=== PATIENT | male | born 1955 | race Caucasian/White ===

== ENCOUNTER 2018-03-27 08:26 | Outpatient (REF) | payer MEDICAID, SELFPAY ==
[2018-03-27 13:36] LABS: Hemoglobin A1C 5.7 % (4.5-6.2)
[2018-03-27 13:57] LABS: Cholesterol 173 mg/dL (50-200); Glucose 100 mg/dL (70-100); HDL Cholesterol 42 mg/dL (40-60); LDL CHOLESTEROL 102 mg/dL (<100); Triglyceride 146 mg/dL (30-150)
[2018-03-28 10:19] LABS: Hepatitis C Ab w Rflx HCV PCR Negative (NEGAT)
== END 2018-03-27 08:27 ==
LOC: NCHCN 08:26
PROVIDERS: PCP Internal Medicine; Visit Provider Internal Medicine
DX: E78.5 Hyperlipidemia, unspecified (principal); Z11.59 Encounter for screening for other viral diseases; E66.9 Obesity, unspecified; Z13.1 Encounter for screening for diabetes mellitus; Z00.00 Encounter for general adult medical examination without abnormal findings
CPT/HCPCS: 80061; 82947; 83721; 86803; 83036

== ENCOUNTER 2018-06-07 14:02 | Emergency (ER) | payer MEDICAID, SELFPAY ==
[2018-06-07 14:06] VITALS: BP 132/83; PULSE 72; RESP 18; TEMP 36.3; O2SAT 95
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
[2018-06-07] MEDS: Erythromycin Ophth Oint 3.5 GM TUBE (14:34)
== END 2018-06-07 14:45 | disposition home or self-care (01) ==
PROVIDERS: Emergency Provider Student in an Organized Health Care Education/Training Program; PCP Internal Medicine
DX: T54.2X1A Toxic effect of corrosive acids and acid-like substances, accidental (unintentional), initial encounter (principal); T26.91XA Corrosion of right eye and adnexa, part unspecified, initial encounter
CPT/HCPCS: 99283

== ENCOUNTER 2019-01-18 01:23 | Outpatient (CLI) | payer MEDICAID, SELFPAY ==
[2019-01-18 10:15] LABS: ALT 43 U/L (12-78); AST 32 U/L (15-37); Albumin 4.1 g/dL (3.4-5.0); Alkaline Phosphatase 44 U/L (46-116); Anion Gap 11.5 mmol/L (3-11); BUN 14 mg/dL (7-18); Bilirubin, Total 0.5 mg/dL (0.2-1.0); CO2 26.5 mmol/L (21.0-32.0); CREATININE 0.98 mg/dL (0.70-1.30); Calcium 9.4 mg/dL (8.5-10.1); Chloride 103 mmol/L (98-107); Glucose 94 mg/dL (70-100); Potassium 4.4 mmol/L (3.5-5.1); Sodium 141 mmol/L (136-145); Total Protein 6.8 g/dL (6.4-8.2)
[2019-01-19 09:24] LABS: AFP Tumor Marker 3.6 ng/mL (<8.1)
[2019-01-19 10:40] LABS: PSA, Screening 3.5 ng/ml (0-4.5)
[2019-01-19 12:35] LABS: Beta-HCG, Quant, Tumor Marker <0.6 IU/L (<1.4)
== END 2019-01-18 01:43 ==
PROVIDERS: PCP Internal Medicine; Visit Provider Urology
DX: Z12.5 Encounter for screening for malignant neoplasm of prostate (principal); C62.12 Malignant neoplasm of descended left testis
CPT/HCPCS: 36415; 80053; 84153; 82105; 84702

== ENCOUNTER 2019-04-09 06:25 | Emergency (ER) | payer MEDICAID, SELFPAY ==
[2019-04-09 06:29] VITALS: BP 118/75; PULSE 70; RESP 16; TEMP 36.9; O2SAT 98
--- NOTE | 2019-04-09 06:34 | ED.GENADUL_ITS ---
Discharge Plan Disposition Patient Disposition: HOME Condition: Stable Discharge Details Chief Complaint: Nk/Back Pain Clinical Impression: Lumbar strain Primary Care Provider: Emeterio Hopkins ED Provider: Dante Barrios Home Meds and New Rx's Prescriptions: New diazepam [Valium] 5 mg tablet 5 mg PO TID PRN (Reason: muscle spasm) Qty: 20 RF: 0 Continued simvastatin [Zocor] 20 MG tablet 40 mg PO DAILY RF: 0 aspirin [Aspirin Low-Strength] 81 MG tablet,chewable 81 mg PO DAILY RF: 0 tamsulosin 0.4 MG capsule 0.4 mg PO DAILY Qty: 30 RF: 4 multivitamin with minerals [Multiple Vitamin-Minerals] 1 EACH tablet 1 ea PO DAILY RF: 0 Probiotic 1 EACH capsule 1 ea PO BID RF: 0 Discharge Instructions Instructions: Low Back Strain (ED) Additional Instructions: follow up with your primary care provider within 1-2 weeks you can take 1000mg tylenol and 600mg ibuprofen every 6 hours for pain as needed do not drink alcohol or drive if you take the valium if you develop high fevers, worsening pain, weakness, difficulty urinating return to the emergency department Medical Decision Making 63 yo male states that 4 days ago he did a lot of raking and strained his lower back. Denies falls or trauma, no fevers, no ivdu, and denies weaknes or diffcculty urinating. HE localizes the pain across lumbar spine. HAS full rom of the lubmar spine though with pain and has most pain when standing straight. No stepoffs, no saddle anethesia and normal sesaiton and motor and strength in the legs. No findings on exam or history to suggest sea or cauda equina or other spinal cordp athology so do not feel emergent mri indicated. Given no falls or trauma doubt fx/dislocation and do not feel xray or ct indicated. Suspect strain vs muscle spasm. Will try mnuscle relaxers and advised f/u with pcp with return precautions Differential Diagnosis strain, muscle spasm HPI General Mode of arrival: ambulatory . Date/Time Provider Initiated Documentation: 04/09/19 06:29 . Limitations to Documentation: no limitations . Information obtained by: patient . History of Present Illness 63 year old M presents to the emergency department with the chief complaint of low back pain, described as moderate, Quality is described as aching, Patient started experiencing this day(s) (4) and it has been constant. Related Data Home Medications Medication Instructions Recorded Confirmed aspirin [Aspirin Low-Strength] 81 mg PO DAILY tab.chew 01/26/13 06/07/18 simvastatin [Zocor] 40 mg PO DAILY tab-cap 01/26/13 06/07/18 tamsulosin 0.4 mg PO DAILY #30 tab-cap 01/17/14 06/07/18 Lactobacillus acidophilus 1 ea PO BID 07/05/16 07/05/16 [Probiotic] multivitamin with minerals 1 ea PO DAILY 07/05/16 06/07/18 [Multiple Vitamin-Minerals] diazepam [Valium] 5 mg PO TID PRN #20 tab 04/09/19 Previous Rx's Medication Instructions Recorded diazepam [Valium] 5 mg PO TID PRN #20 tab 04/09/19 Allergies Allergy/AdvReac Type Severity Reaction Status Date / Time No Known Allergies Allergy Unverified 04/09/19 06:36 General CLINT: 3 Review of Systems Review of Systems All systems reviewed & are unremarkable except as noted in HPI and below Constitutional Denies chills, Denies fever(s) and Denies weakness Eyes Denies loss of vision ENT Denies change in voice Cardiovascular Denies chest pain and Denies dyspnea Respiratory Denies cough and Denies dyspnea Gastrointestinal Denies abdominal pain, Denies nausea and Denies vomiting Genitourinary Denies dysuria Musculoskeletal Denies joint swelling Integumentary/Breasts Denies rash Neurologic Denies loss of vision and Denies weakness Psychiatric Denies depression Endocrine Denies cold intolerance and Denies heat intolerance PFSH Medical History Adenomatous colon polyp Degenerative joint disease (DJD) of lumbar spine Dyspepsia Hyperlipidemia Seminoma of left testis, stage 1 Surgical History Colonoscopy - IV Sedation Cystoscopy Orchiectomy, Radical right Social History Smoking/Tobacco Use Status: Never Alcohol Intake: never Drug use: Occasionally Substance use type: marijuana Do you feel safe at home: Yes Do you feel safe in your relationship?: Yes Exam Const General: no acute distress Orientation: alert HENMT Head: normal to inspection Ears: external ears normal General nose exam: external nose normal Mouth: moist mucous membranes Eyes General: appearance normal, both eyes and all related structures Neck Neck: normal visual inspection Resp Effort & Inspection: normal respiratory effort and able to speak in complete sentences Cardio Rate: regular rate Back/Spine/Pelvis Back: no CVA tenderness Skin General skin exam: no rashes or lesions noted Neuro General: alert and oriented x3 Extrem General: normal to inspection Psych Mental Status: mental status grossly normal
== END 2019-04-09 06:47 | disposition home or self-care (01) ==
PROVIDERS: Emergency Provider Emergency Medicine; PCP Internal Medicine
DX: S39.012A Strain of muscle, fascia and tendon of lower back, initial encounter (principal); X50.3XXA Overexertion from repetitive movements, initial encounter; Y93.H1 Activity, digging, shoveling and raking
CPT/HCPCS: 99283

== ENCOUNTER 2019-08-13 08:05 | Day surgery (SDC) | payer MEDICAID, SELFPAY ==
--- NOTE | 2019-08-13 06:46 | W.COLOREPORT ---
Date of service: 08/13/19 Time of Service: 09:05 Colonoscopy Report Date of procedure: 08/13/19 Pre-op diagnosis general: Hx of colon polyps Post-op diagnosis procedure note: same (Polyps and diverticulosis) Procedure: Colonoscopy with polypectomy with cold forceps Surgeon: Ruma Bojorquez Anesthesia proc note operative: other (General/ ASA 2/Nicholas Mayo, [employer]) Estimated blood loss (mL): 3 Pathology: other (Transverse polyps, sigmoid polyps x3, and rectal polyp) Complications: None Disposition: same day Indications: 64 y/o male with history of hyperlipidemia presents for colonoscopy screening pre-op. His last screening was in 2014 which was remarkable for tubular adenoma's x 3. He denies a family history of colon cancer. He denies any changes in bowel habits including bloody or black tarry stools, abdominal pain, diarrhea or constipation. Prep: Miralax/Dulcolax Procedure Start Time: 09:05 Procedure End Time: 09:31 Retraction Time: 18 minutes Findings: 5 polyps, all <1 cm in size mild sims-diverticulosis Procedure Description: After informed consent was obtained the patient was taken to the procedure room and placed in a left decubitous position. Monitors were applied and a time out was done. The patients name, date of , procedure, allergies to medications and metal in their body was reviewed. The patient was then sedated. Once sedated and comfortable a rectal exam was done. External exam was normal. Internal exam revealed a normal sphincter tone and no palpable masses. The prostate felt smooth. The scope was then introduced and retro-flexed. Grade 1 internal hemorrhoids were identified. There were no polyps or masses on retro-flexion. The scope was then advanced to the cecum without difficulty. The patient did Fabrice down as I was trying to get to the cecum and the patient was given Robinol by anesthesia. The TI and appendiceal orifice were identified. The prep was adequate. The scope was then slowly retracted over 18 minutes back into the rectum. Polyps were removed with cold forceps in the Transverse colonx1, Sigmoid colon x3 and rectum x1. The scope was removed and the patient was woken up and taken back to Same day surgery in stable condition. The patient tolerated the procedure well and there were no immediate complications. Follow up: The patient should follow up in 3-5 years unless they develop changes in bowel habits or other new gastrointestinal complaints.
--- NOTE | 2019-08-13 06:48 | PDOC.DSDIS_ITS ---
Discharge Plan Disposition Patient Disposition: HOME Condition: Good Discharge Details Reason For Visit: Hx of polyps Attending Provider: Ruma Bojorquez Primary Care Provider: Emeterio Hopkins Home Meds and New Rx's Prescriptions: Continued ascorbic acid (vitamin C) 500 mg tablet 1,000 mg PO DAILY RF: 0 simvastatin [Zocor] 20 MG tablet 40 mg PO DAILY RF: 0 aspirin [Aspirin Low-Strength] 81 MG tablet,chewable 81 mg PO DAILY RF: 0 tamsulosin 0.4 MG capsule 0.4 mg PO DAILY Qty: 30 RF: 4 multivitamin with minerals [Multiple Vitamin-Minerals] 1 EACH tablet 1 ea PO DAILY RF: 0 Probiotic 1 EACH capsule 1 ea PO BID RF: 0 Discontinued bisacodyl [Dulcolax (bisacodyl)] 5 mg tablet,delayed release (DR/EC) 5 mg PO ONCE RF: 0 polyethylene glycol 3350 17 gram/dose powder 238 g PO ONCE Qty: 238 RF: 0 bisacodyl [Dulcolax (bisacodyl)] 5 mg tablet,delayed release (DR/EC) 5 mg PO ONCE Qty: 4 RF: 0 Discharge Instructions Instructions: Diverticulosis (DC), Colorectal Polyps (DC) Additional Instructions: Findings: Mild Diverticulosis 5 polyps Follow up: 3-5 years depending on the pathology report Please call if you develop: fevers >101.5 Nausea or Vomiting Abdominal pain that is not transient DAY SURGERY UNIT POST ENDOSCOPY INSTRUCTIONS 1. Because there will be medication in your system for the next 24 hours, you may feel a little sleepy. Your coordination will be affected. Therefore: a. Do not drive or operate dangerous equipment for 24 hours. b. Do not drink alcohol beverages for 24 hours (not even beer). c. Plan to go home and rest for the day. 2. Generally there are no restrictions on your activity after a day or so has gone by, but you may feel a bit fatigued for a few days. 3 After you arrive home you may have a light meal and return to a normal diet as you can tolerate it without feeling sick to your stomach. 4. After surgery, you may feel pain or discomfort. This should be only transient, but if it persists please contact your doctor. 5. If there are any questions regarding the findings of your procedure, please feel free to contact your doctor. 6. If you are unable to contact your doctor with a problem, contact the [facility] at [phone]. 4. Continue all your regular medications unless directed otherwise. I understand the above instructions and have no questions. Signature of Patient or Responsible Adult Escort Date/Time Name of Responsible Adult Escort Signature of Nurse Date/Time Activity:: Activity as Tolerated Diet:: High Fiber diet Discharge Orders Discharge Orders: Discharge Order (Routine); Ordered 08/13/19 Ordered By: Ruma Bojorquez DS: Diagnosis Discharge Diagnosis (1) Diverticulosis: Status: Acute (2) Colorectal polyps: Status: Acute
[2019-08-13 08:18] VITALS: BP 123/78; PULSE 61; RESP 16; TEMP 36.6; O2SAT 96
[2019-08-13] MEDS: Lactated Ringers 1,000 ML 80 ML IV (08:40)
--- NOTE | 2019-08-13 09:18 | BOWEL_PTH ---
PATIENT: Juan Molina JR LOC: [facility] U#:[id number] AGE/SX: 64/M ROOM: RE08/13/[address]: Ruma Bojorquez MD : [id number] BED: DIS: 08/13/2019 SPEC #: [id number] RECD: 08/13/19 11:11 STATUS: KIRA REQ #: [id number] JOE: 08/13/19 09:[address]: Ruma Bojorquez DEPT: Surgical Specimen RECD BY: Brandy Ma ENTERED: 08/13/19 11:12 SP TYPE: Bowel OTHR DR: Emeterio Hopkins Tissues: 1 - BIOPSY BOWEL 2 - BIOPSY BOWEL 3 - BIOPSY BOWEL Procedures: GROSS AND MICRO LEVEL 4 Comments: [id number]
[2019-08-13 10:28] VITALS: BP 113/75; PULSE 56; RESP 17; TEMP 36.2; O2SAT 97
== END 2019-08-13 10:52 | disposition home or self-care (01) ==
LOC: SUR 08:06
PROVIDERS: PCP Internal Medicine; Visit Provider Surgery
PROC: 0DJD8ZZ Inspection of Lower Intestinal Tract, Via Natural or Artificial Opening Endoscopic (ICD-10-PCS; CPT 45378; principal; 2019-08-13 09:30)
DX: Z12.11 Encounter for screening for malignant neoplasm of colon (principal); D12.3 Benign neoplasm of transverse colon; D12.5 Benign neoplasm of sigmoid colon; K62.1 Rectal polyp; K64.0 First degree hemorrhoids; Z86.010 Personal history of colon polyps; R00.1 Bradycardia, unspecified
CPT/HCPCS: 45380; 88305; J2250; J2704; J3010

== ENCOUNTER 2020-04-17 08:34 | Outpatient (REF) | payer MEDICAID, SELFPAY ==
[2020-04-17 21:33] LABS: Calculated LDL 110 mg/dL (<100); Cholesterol 191 mg/dL (<200); Glucose 91 mg/dL (74-106); HDL Cholesterol 40 mg/dL (40-60); Triglyceride 205 mg/dL (<150)
[2020-04-17 21:35] LABS: Hemoglobin A1C 5.7 % (<5.7)
[2020-04-21 12:45] LABS: PSA, Screening 3.3 ng/mL (0.0-4.5)
== END 2020-04-17 08:54 ==
LOC: NCHCN 08:34
PROVIDERS: PCP Internal Medicine; Visit Provider Internal Medicine
DX: E78.5 Hyperlipidemia, unspecified (principal); E66.9 Obesity, unspecified; N40.0 Benign prostatic hyperplasia without lower urinary tract symptoms; C62.90 Malignant neoplasm of unspecified testis, unspecified whether descended or undescended; Z12.5 Encounter for screening for malignant neoplasm of prostate
CPT/HCPCS: 80061; 82947; 84153; 83036

== ENCOUNTER 2020-10-23 16:08 | Emergency (ER) | payer OTHER, MEDICAID, SELFPAY ==
[2020-10-23] VITALS (35 sets, daily range): BP systolic 101–140; BP diastolic 70–112; PULSE 58–80; RESP 12–23; TEMP 36.2; O2SAT 92–100
--- NOTE | 2020-10-23 16:15 | DI.CT_ITS ---
EXAM: CT CHEST/ABD/PEL W TECHNIQUE: CT examination of the chest, abdomen, and pelvis was performed with bolus infusion of 100 cc of Omnipaque 350. COMPARISON: CT ABD PELVIS WITH CONTRAST from 01/03/2012 FINDINGS: There is no evidence of a thoracic vascular injury. The lungs are clear. No pneumothorax or pleural effusion. No mediastinal hematoma. No adenopathy in the chest. Tracheobronchial tree appears intact. The liver contains left lobe mass about 50 Hounsfield units attenuation, not present on prior CT of J une 2011. Additional evaluation with multiphasic hepatic CT requested for characterization to differ entiate potential hemangioma from neoplastic mass. Spleen is unremarkable. Pancreas is unremarkable. No biliary dilatation. Probable cholelithiasis. Adrenals and kidneys are unremarkable except for incidental small bilateral renal cysts.. No evidenc e of urinary tract injury or obstruction. Prostatic enlargement and bladder distension with bladder diverticuli noted. Findings suggesting chr onic bladder outlet obstruction. No abdominal or pelvic vascular injury seen. No abdominal or pelvic adenopathy. No significant abdomi nal wall hernia or hematoma. No evidence of bowel injury. There are fractures posteriorly ribs 3 through 6 on the right. No associated pneumothorax or hemotho rax. IMPRESSION: Fractures of ribs 3 through 6 posteriorly on the right. No associated pneumothorax or hemothorax. New left hepatic lobe mass, intermediate attenuation, unlikely this represents a cyst, multiphasic he pati CT suggested for characterization. Findings were communicated to the ER. RADIATION DOSE DELIVERED: 1,870.25mGy.cm Total DLP 1,870.25mGy.cm Total DLP DATA REPOSITORY: All CT scans at this facility are submitted to the National Radiology Data Registry (NRDR) Dose Index Registry (DIR) with the [employer] ([employer]). RADIATION OPTIMIZATION: All CT scans at this facility use at least one of these dose optimization te chniques: automated exposure control; mA and/or kV adjustment per patient size (includes targeted exa ms where dose is matched to clinical indication); or iterative reconstruction.
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
[2020-10-23] MEDS: Normal Saline 1,000 ML 1000 ML IV (16:40)
[2020-10-23 16:44] LABS: Abs Immature Grans 0.09 10^3/uL (0.0-0.06); Absolute Basophil Count 0.13 10^3/uL (0.0-0.2); Absolute Eosinophil Count 0.42 10^3/uL (0.0-0.7); Absolute Lymphocyte Count 2.31 10^3/uL (1.2-3.4); Absolute Monocyte Count 0.74 10^3/uL (0.1-0.8); Absolute Neutrophil Count 4.25 10^3/uL (1.2-6.7); Basophils % 1.6; Eosinophils % 5.3; HCT 42.8 % (40.0-50.0); HGB 14.6 g/dL (13.5-17.5); Immature Grans % 1.1; Lymphocytes % 29.1; MCH 29.7 pg (27.0-33.0); MCHC 34.1 % (32.0-36.0); Monocytes % 9.3; Neutrophils % 53.6; Nucleated RBC 0 %; Platelet Count 241 10^3/uL (130-400); RBC 4.92 10^6/uL (4.36-5.78); RDW 12.2 % (11.8-14.1); RDW-SD 39.2 fL; WBC 7.94 10^3/uL (4.4-10.8)
[2020-10-23 17:01] LABS: PTT Activated 18.6 sec (21.0-27.5); Prothrombin Time 9.7 sec (9.3-11.0)
[2020-10-23 17:04] LABS: ALT 118 U/L (16-63); AST 112 U/L (15-37); Albumin 3.8 g/dL (3.4-5.0); Alkaline Phosphatase 47 U/L (46-116); Anion Gap 7.9 mmol/L (3-11); BUN 17 mg/dL (7-18); Bilirubin, Total 0.3 mg/dL (0.2-1.0); CO2 28.1 mmol/L (21.0-32.0); CREATININE 0.9 mg/dL (0.70-1.30); Calcium 9.2 mg/dL (8.5-10.1); Chloride 105 mmol/L (98-107); Glucose 113 mg/dL (74-106); Lipase 365 U/L (73-393); Sodium 141 mmol/L (136-145)
--- NOTE | 2020-10-23 17:08 | DI.CT_ITS ---
EXAM: CT HEAD CERVICAL SPINE WO COMPARISON: No exams were available for comparison FINDINGS: CT examination of the cervical spine was performed without contrast administration. There is no evidence of acute cervical spine fracture or dislocation. Intervertebral disc spaces are well maintained. Tracheolaryngeal structures appear intact. No cervical mass or adenopathy. Noncontrast cranial CT was performed. Ventricular system is normal in appearance. No evidence of acute intracranial hemorrhage, mass effect, or midline shift. No calvarial fracture. The orbital and temporal bone structures appear intact. Visualized mastoid air cells and paranasal sinuses appear clear. IMPRESSION: No evidence of acute cervical spine injury. No evidence of acute intracranial injury. RADIATION DOSE DELIVERED: 1,669.19mGy.cm Total DLP 1,669.19mGy.cm Total DLP DATA REPOSITORY: All CT scans at this facility are submitted to the National Radiology Data Registry (NRDR) Dose Index Registry (DIR) with the [employer] (ACR). RADIATION OPTIMIZATION: All CT scans at this facility use at least one of these dose optimization te chniques: automated exposure control; mA and/or kV adjustment per patient size (includes targeted exa ms where dose is matched to clinical indication); or iterative reconstruction.
--- NOTE | 2020-10-23 17:09 | NUR.NOTE ---
Nursing Note: Sonam [phone]
[2020-10-23] MEDS: Normal Saline - Diluent 50 ML VIAL IV (17:11)
[2020-10-23] MEDS: Omnipaque 350 MG/ML 100 ML BTL IJ (17:11)
[2020-10-23 17:22] LABS: ETHANOL BLOOD < 3.0 mg/dL (<3)
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
[2020-10-23 17:44] LABS: Source Nasal/Nares
[2020-10-23 17:58] LABS: Bilirubin Negative (Negative); Blood Negative (Negative); Clarity Clear (Clear); Glucose Negative (Negative); Ketones Negative (Negative); Leukocyte Esterase Negative (Negative); Nitrite Negative (Negative); Specific Gravity 1.015 (1.005-1.025); Urobilinogen 0.2 EU/dL (Up TO 0.2); pH 7.5 (5-8)
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
[2020-10-23 19:58] LABS: COVID-19 PCR Negative (Negative)
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
--- NOTE | 2020-10-24 08:08 | W.ED.FU ---
Date of service: 10/24/20 Time of Service: 08:09 Follow Up Plan: Radiologist over read of the CT from yesterday's visit is questionable for a liver mass with increased attenuation, recommended follow-up with hemangioma protocol CT multiphasic study. Attempt was made to call patient but was received with a busy signal. Call made to PCP Dr. Hopkins, to relay results and recommendations, PCP to call me back. EXAM: CT CHEST/ABD/PEL W TECHNIQUE: CT examination of the chest, abdomen, and pelvis was performed with bolus infusion of 100 cc of Omnipaque 350. COMPARISON: CT ABD PELVIS WITH CONTRAST from 01/03/2012 FINDINGS: There is no evidence of a thoracic vascular injury. The lungs are clear. No pneumothorax or pleural effusion. No mediastinal hematoma. No adenopathy in the chest. Tracheobronchial tree appears intact. The liver contains left lobe mass about 50 Hounsfield units attenuation, not present on prior CT of December 2011. Additional evaluation with multiphasic hepatic CT requested for characterization to differentiate potential hemangioma from neoplastic mass. Spleen is unremarkable. Pancreas is unremarkable. No biliary dilatation. Probable cholelithiasis. Adrenals and kidneys are unremarkable except for incidental small bilateral renal cysts.. No evidence of urinary tract injury or obstruction. Prostatic enlargement and bladder distension with bladder diverticuli noted. Findings suggesting chronic bladder outlet obstruction. No abdominal or pelvic vascular injury seen. No abdominal or pelvic adenopathy. No significant abdominal wall hernia or hematoma. No evidence of bowel injury. There are fractures posteriorly ribs 3 through 6 on the right. No associated pneumothorax or hemothorax. IMPRESSION: Fractures of ribs 3 through 6 posteriorly on the right. No associated pneumothorax or hemothorax. New left hepatic lobe mass, intermediate attenuation, unlikely this represents a cyst, multiphasic hepatic CT suggested for characterization. Findings were communicated to the ER. 0824: Spoke with Dr. Hopkins, discussed results and recommendation for additional CT imaging, he verbalizes understanding and will attempt to get ahold of patient and order outpatient CT.
== END 2020-10-23 21:06 | disposition home or self-care (01) ==
PROVIDERS: Emergency Provider Physician Assistant; PCP Internal Medicine
DX: S22.41XA Multiple fractures of ribs, right side, initial encounter for closed fracture (principal); S63.125A Dislocation of interphalangeal joint of left thumb, initial encounter; M25.561 Pain in right knee; V20.4XXA Motorcycle driver injured in collision with pedestrian or animal in traffic accident, initial encounter
CPT/HCPCS: 26770; 29125; 74177; 80053; 83690; 86850; 86900; 86901; 87635; 96361; 96374; 96376; 99285; 70450; 71260; 72125; 73130; 73564; 80320; 81003; 85025; 85610; 85730; 99284; J3490

== ENCOUNTER 2020-11-10 02:32 | Outpatient (CLI) | payer MEDICAID, SELFPAY ==
--- NOTE | 2020-11-10 | DI.CT_ITS ---
EXAM: CT ABDOMEN W CLINICAL HISTORY: F/U LT LOBE HEPATIC MASS, R16.0 TECHNIQUE: Omnipaque 350-100 cc IV contrast. No oral contrast This study was of the abdomen only. Pelvis not performed. COMPARISON: CT ABD PELVIS WITH CONTRAST from 07/27/[address] CHEST/ABD/PEL W from 10/23/2020 FINDINGS: Visualized lung bases: Clear. No nodules. No pleural effusions. There is no ascites in the upper abdomen. Liver: There is a 3 by 3.4 by 2.3 cm lesion in the left hepatic lobe, as was present on the CT scan 0 10/23/2020 but not evident on prior CT scan 07/27/2010 and therefore somewhat concerning. However, th is study reveals that this lesion exhibits discontinuous peripheral enhancement with some centripetal enhancement and is therefore probably a benign hemangioma, given the limitations of this study (when compared to MRI). There are no other focal hepatic lesions in the left lobe. In the peripheral asp ect of the right lobe there is a subcapsular subtle finding which is possibly another hemangioma. Biliary/pancreas: No obvious gallbladder pathology. CBD is not dilated. No obvious mass in the panc reas. No dilatation of the pancreatic duct. Spleen: Normal size. No focal splenic lesions. The splenic and portal veins are patent. Adrenals: There are no significant adrenal masses. Kidneys: There is small cysts noted in both kidneys. The largest is an exophytic cyst off the latera l cortex of the left kidney measuring 1.5 by 1.2 cm. No solid lesions in the kidneys. No calculi. No hydronephrosis. Abdominal aorta: Not enlarged. Also no para-aortic adenopathy. Anterior abdominal wall. No hernia seen above the level the umbilicus. GI: No bowel obstruction. Osseous: There are no lytic osseous lesions identified IMPRESSION: 1. There is a 3 x 3.4 x 2.3 cm lesion left hepatic lobe which is unchanged in size from 10/23/2020 bu t was not evident on CT scan July 2010. Although it has appearance of a probable hemangioma on t his CT study, please note that the amount of sequences performed is limited by the amount of radiatio n dose. I feel that dedicated contrast infused MRI scan of the liver with hemangioma protocol is rec ommended here for added specificity. In addition, there appears to be another subtle subcapsular les ion in the right hepatic lobe which can also be studied with MRI. 2. There are benign cysts noted in both kidneys. 3. There is no ascites in the upper abdomen. 4. The pelvis was not scanned.
[2020-11-10] MEDS: Omnipaque 350 MG/ML 100 ML BTL IV ×2 (08:27→09:21)
[2020-11-10] MEDS: Normal Saline - Diluent 50 ML VIAL IV (09:21)
[2020-11-10] MEDS: Normal Saline Flush 10 ML SYR IVP (09:22)
== END 2020-11-10 02:52 ==
PROVIDERS: PCP Internal Medicine; Visit Provider Internal Medicine
DX: R16.0 Hepatomegaly, not elsewhere classified (principal); K76.89 Other specified diseases of liver; N28.1 Cyst of kidney, acquired
CPT/HCPCS: 74160; J3490

== ENCOUNTER 2020-12-03 02:25 | Outpatient (CLI) | payer MEDICAID, SELFPAY ==
--- NOTE | 2020-12-03 | DI.MRI_ITS ---
Exam(s) MR ABDOMEN WO/W EXAM: MR ABDOMEN WO/W CLINICAL HISTORY: HEMANGIOMA,D18.00 TECHNIQUE: Multiplanar multisequence MRA of the Abdomen was performed. CONTRAST MATERIAL: IV Contrast: 20 mL of Dotarem contrast administered. COMPARISON: CT ABD PELVIS WITH CONTRAST from 07/27/2010 CT CHEST WITH CONTRAST from 01/24/[address] ABDOMEN W from 11/10/2020 FINDINGS: Liver: There is a 3.1 x 3 cm mass in the left lobe of the liver. This corresponds to the CT abnormal ity. The lesion is hyperintense on the T2 weighted images and hypointense on the T1 weighted images. There is progressive peripheral enhancement of the mass following contrast administration. Lesion never fully enhances even at the last 15 minutes postcontrast examination. Pancreas: Unremarkable. Gallbladderand Bile Ducts: Unremarkable. Adrenals: Unremarkable. Kidneys: There are bilateral simple renal cysts present. Spleen: Unremarkable. Aorta: Unremarkable. Soft Tissues: Unremarkable. Bone: Unremarkable. Lymph Nodes: Unremarkable. IMPRESSION: 3.1 x 3 cm mass in the left lobe of the liver as described above. There is progressive peripheral en hancement without complete opacification at the 15 minutes postcontrast examination. Primary diagnos tic concern is for hepatic hemangioma. Due to the lack of complete enhancement other etiologies court ot be entirely excluded. A follow-up MRI examination in 3 months is recommended for re-evaluation an d to document stability. DATA REPOSITORY:
[2020-12-03] MEDS: Gadoterate meglumine 20 ML VIAL IVP (09:21)
== END 2020-12-03 02:45 ==
PROVIDERS: PCP Internal Medicine; Visit Provider Internal Medicine
DX: K76.89 Other specified diseases of liver (principal); D18.03 Hemangioma of intra-abdominal structures; N28.1 Cyst of kidney, acquired
CPT/HCPCS: 74183

== ENCOUNTER 2021-01-09 10:58 | Outpatient (CLI) | payer MEDICAID, SELFPAY ==
--- NOTE | 2021-01-09 10:15 | DI.RAD_ITS ---
Exam(s) XR THUMB LT EXAM: XR THUMB LT EXAM DATE/TIME: CLINICAL HISTORY: thumb dislocation. TECHNIQUE: 2D digital imaging was performed. COMPARISON: None. FINDINGS: BONES: No acute fracture is present. No bony destructive lesion is seen. JOINTS: There is a subluxation of the 1st MCP joint. Mild degenerative changes are seen at the inter phalangeal joint of the thumb. SOFT TISSUE: Normal. IMPRESSION: First MCP joint subluxation. DATA REPOSITORY: RADIATION DOSE DELIVERED:
== END 2021-01-09 10:59 | disposition home or self-care (01) ==
LOC: DIORS 10:58
PROVIDERS: PCP Internal Medicine; Referring Provider Internal Medicine; Visit Provider Physician Assistant Surgical
DX: S63.11 Subluxation and dislocation of metacarpophalangeal joint of thumb (principal)
CPT/HCPCS: 73140

== ENCOUNTER 2021-03-04 01:06 | Emergency (ER) | payer MEDICAID, SELFPAY ==
[2021-03-04] VITALS (42 sets, daily range): BP systolic 105–142; BP diastolic 66–88; PULSE 53–76; RESP 12–21; TEMP 36.4; O2SAT 91–98
--- NOTE | 2021-03-04 01:00 | RT.EKG_ITS ---
APPROVED REPORT Exam: Resting ECG Reason for Exam: chst pain,dizzy Patient Location: E HR:69 bpm ECG Measurements Heart Rate 69 AXIS WY 162 P 30 QRSd 102 QRS -18 QT 404 T 5 QTc 433 Conclusion Sinus rhythm...normal P axis, V-rate 60- 99
--- NOTE | 2021-03-04 01:15 | DI.CT_ITS ---
Exam(s) CT CHEST PE ABD PELVIS W EXAM: CT CHEST PE ABD PELVIS W CLINICAL HISTORY: chest pain, dyspnea, abdomen pain. TECHNIQUE: Imaging Protocol: Axial CT angiography was performed with multi-slice acquisition and m ulti-planar and/or 3D reconstructions. CONTRAST MATERIAL: Intravenous: Omnipaque 350 Contrast volume:100 ml Oral: None COMPARISON: CT CT ABDOMEN W from 11/10/2020 FINDINGS: CHEST: PULMONARY ARTERIES: There are no intra-arterial filling defects to suggest the presence of acute pulm onary emboli. LUNGS: There is no evidence of pulmonary infarction.No infiltrates. There are no pleural effusions. MEDIASTINUM: There is no hilar nor mediastinal adenopathy. Visualized thyroid unremarkable. CARDIAC: Heart size is normal. There is no pericardial effusion. There is no significant shift of t he interventricular septum.Caliber of the thoracic aorta is within normal limits. OSSEOUS: There are subacute appearing healing fractures of the right 2nd, 3rd, 4th, 5th, and 6th ribs ..No lung contusion. No pneumothorax. ABDOMEN: There is no ascites. LIVER: In the superior aspect of the left hepatic lobe there is again noted a hypodense lesion measur ing approximately 3.6 by 2.5 cm with enhancement pattern of the may suggest that this is a hemangioma in this was also present on a CT scan of 10/23/2020 (but not not evident on prior CT scan of [facility] 2009). In the peripheral aspect of the right hepatic lobe previously described finding is less jada dent. GALLBLADDER/BILIARY: Today's study there appear to be 2 tiny calculi in the gallbladder. Gallbladder wall is not edematous. CBD is not dilated. No obvious dilatation of intrahepatic ducts. PANCREAS: No evidence of pancreatic mass nor dilatation of the pancreatic duct. SPLEEN: Spleen is not enlarged. There are no intrasplenic lesions. Splenic and portal veins are lopez nt. ADRENALS: There are no significant adrenal masses. KIDNEYS:Benign cysts in both kidneys are again noted. No solid renal masses. No calculi nor hydrone phrosis evident. No hydroureter.. ABDOMINAL AORTA: Abdominal aorta is not enlarged. LYMPH NODES: There is no retroperitoneal or para-aortic adenopathy. ABDOMINAL WALL/GI: No evidence of significant anterior abdominal wall hernia. No bowel obstruction. PELVIS: There is evidence of previous left inguinal hernia repair. LYMPH NODES: There is no intrapelvic nor inguinal adenopathy. GI: No evidence of appendicitis.Numerous sigmoid diverticuli. No obvious acute diverticulitis. URINARY BLADDER: Urinary bladder mildly distended and with multiple diverticuli evident. Large diver ticulum is a right-sided Hutch diverticulum which measures 2.8 by 2.6 cm. REPRODUCTIVE: Prostate gland is grossly enlarged and lobulated projecting into the bladder. Prostate measurements are 7.2 cm AP by 6 cm wide by 6.2 cm craniocaudal. OSSEOUS: No significant osseous lesions. IMPRESSION: 1. No evidence of acute pulmonary emboli nor pulmonary infarction. 2. There are multiple subacute appearing partially healed right rib fractures involving theright 2nd through 6th ribs, inclusive. There is no pneumothorax. No pleural effusion. 3. Cholelithiasis. Two small calcified gallstones are noted. No evidence of acute cholecystitis. N o dilatation of the biliary tree, both intra and extrahepatic 4. Previously described lesion in the left hepatic lobe is again noted. This is difficult to assess on this type of study and should probably undergo hemangioma protocol MRI study for confirmation, par ticularly since it apparently was not evident on a CT scan performed in July 2010 5. Benign cysts in both kidneys again noted. 6. Massively enlarged and lobulated prostate gland. Multiple diverticuli in the urinary bladder. 7. No significant osseous lesions evident. RADIATION DOSE DELIVERED: 1,679.95mGy.cm Total DLP DATA REPOSITORY: All CT scans at this facility are submitted to the National Radiology Data Registry (NRDR) Dose Index Registry (DIR) with the [employer] (ACR). RADIATION OPTIMIZATION: All CT scans at this facility use at least one of these dose optimization te chniques: automated exposure control; mA and/or kV adjustment per patient size (includes targeted exa ms where dose is matched to clinical indication); or iterative reconstruction.
--- NOTE | 2021-03-04 01:25 | W.ED.GENAD ---
Discharge Plan Disposition Patient Disposition: HOME Condition: Stable Discharge Details Clinical Impression: Chest pain, Dyspnea, Abdominal pain, Palpitations Primary Care Provider: Emeterio Hopkins ED Provider: Dante Barrios Home Meds and New Rx's Prescriptions: Continued ascorbic acid (vitamin C) 500 mg tablet 1,000 mg PO DAILY RF: 0 simvastatin [Zocor] 20 MG tablet 40 mg PO DAILY RF: 0 aspirin [Aspirin Low-Strength] 81 MG tablet,chewable 81 mg PO DAILY RF: 0 tamsulosin 0.4 MG capsule 0.4 mg PO DAILY Qty: 30 RF: 4 Probiotic 1 EACH capsule 1 ea PO BID RF: 0 Discharge Instructions Instructions: Chest Pain (ED), Heart Palpitations (ED) Additional Instructions: Your blood work and cat scan did not show any significant abnormalities at this time Follow up with your primary care provider as soon as possible if you feel more ill, have severe worsening pain or difficulty breathing return to the emergency department Medical Decision Making 65 yo male who did smoke marijuana frequently up until a week ago when he stopped, denies tobacco or alcohol use, comes in with feeling anxious, fluttering sensation in chest and mid abdomen pain. He states it started earlier tonight and can't think of anything that would have made his symptoms worsen. He has been under a lot of stress recently with life events, denies si/hi. He states he has been having intermittent left anterior chest pain and hurts with deep breathing. He has not had diaphoresis, mild dyspnea when he does get the pain in his chest. He also has had mid abdomen pain that comes and goes and can't think of anything that brings it on, and no known relieving or exacerbating factors. He appears anxious on exam. He has no focal motor or sensation deficits, CN II-XII intact, clear speech, NIH of 0. He has no rashes on the chest wall, clear lungs and no murmurs. He has a soft non distended abdomen with central abdomen tenderness, no guarding or rebound. I suspect this could be anxiety but will evaluate for possible nstemi, keep on the monitor to see if he is having intermittent afib/flutter (though I feel this is unlikely given he has had this symptoms and has been sinus rhythm during them). He does have pleuritic chest pain so will obtain CTA to evaluate for PE. no tearing back pain and normal pulses so doubt dissection. Will also evaluate for pancreatitis for his abdomen pain and image to evaluate for possible sbo vs cholecystitis. No pain out of proportion to exam so doubt dissection. pt's symptoms resolved after ativan, ct chest unremarkable and labs thus far unremarkable, ct abd/pelvis shows bladder diverticula and possible indication of cystitis, awaiting ua. He feels significantly better and appears less anxious. Will obtain delta troponin and ecg pt sleeping on reassessment, no changes on ekg or troponin. Discussed findings with patient at length and all questions answered. At this time he is stable for discharge and will follow up with his pcp hailee and return precautions given Differential Diagnosis Differential Diagnosis: anxiety, anemia, pancreatitis, nstemi, aflutter/fib Imaging Data Radiologic Study: Attestation: I personally reviewed and interpreted this imaging study as follows: Imaging: CT Scan Radiologist's impression: no acute findings in the chest, in the abdomen : 19-year-old female presents to the ER with chief of headache. She does have a past medical history of migraine headaches she reports this is been ongoing for the last 3 days. She described pain to the frontal scalp and the occipital portion of her head. Associated with nausea vomiting, photosensitivity and sensitivity to sound. She denies any recent head injury no focal neuro deficits noted. She denies any fever chills. She has been taking Maxalt and hydroxyzine with little to no relief. Patient takes the Nexplanon for control is unsure when her normal menstrual periods, is very irregular. She denies any dysuria or any other associated symptoms. Lab Data Lab results reviewed: Yes I reviewed the patient's lab results. ECG Data Attestation: I personally reviewed and interpreted this ECG (s) as follows: Prior ECG tracings: not available for review Interpretation: sinus rhythm, rate of 69, no acute st t wave ischemic findings sinus rhythm, rate of 60, no acute st t wave ischemic changes HPI General Date/Time Provider Initiated Documentation: 03/04/21 01:07. Limitations to Documentation: no limitations. Information obtained by: patient. History of Present Illness 65 year old M presents to the emergency department with the chief complaint of fluttering in chest, described as moderate, and is localized to the chest. Patient abdomen. Patient started experiencing this day(s) (1) and it has been intermittent. No relieving factors improve symptom(s), No exacerbating factors reported . Patient notes shortness of breath. Patient did receive the following treatments prior to arrival, none Related Data Home Medications Medication Instructions Recorded Confirmed aspirin [Aspirin Low-Strength] 81 mg PO DAILY tab.chew 01/26/13 03/04/21 simvastatin [Zocor] 40 mg PO DAILY tab-cap 01/26/13 03/04/21 tamsulosin 0.4 mg PO DAILY #30 tab-cap 01/17/14 03/04/21 Probiotic 1 ea PO BID 07/05/16 03/04/21 ascorbic acid (vitamin C) 500 mg 1,000 mg PO DAILY tab 08/02/19 03/04/21 tablet Allergies Allergy/AdvReac Type Severity Reaction Status Date / Time No Known Allergies Allergy Unverified 03/04/21 01:15 General Stated Complaint: GenMedical CLINT: 3 Review of Systems All systems reviewed & are unremarkable except as noted in HPI and below Constitutional Constitutional: Denies chills, Denies fever(s) and Denies weakness Respiratory Respiratory: Denies cough Gastrointestinal Gastrointestinal: Denies vomiting Musculoskeletal Musculoskeletal: Denies joint swelling Neurologic Neurologic: Denies weakness REPLACED BY [facility] Medical History Adenomatous colon polyp BPH (benign prostatic hyperplasia) Cannabis abuse, daily use Colorectal polyps Degenerative joint disease (DJD) of lumbar spine Diverticulosis Dyspepsia Hyperlipidemia Left shoulder pain Lower back pain Obesity Seminoma of left testis, stage 1 Varicose vein of leg Surgical History Colonoscopy - IV Sedation (~08/13/19) 08/05/2014 Cystoscopy History of left inguinal hernia repair Orchiectomy, Radical right Social History Smoking/Tobacco Use Status: Never Smoking risk assessment performed?: Yes Alcohol Intake: never Drug use: Current Sobriety Substance use type: marijuana Do you feel safe at home: Yes Do you feel safe in your relationship?: Yes Exam Const General: anxious Orientation: alert HENMT Head: normal to inspection Ears: external ears normal General nose exam: external nose normal Mouth: moist mucous membranes Eyes General: appearance normal, both eyes and all related structures Neck Neck: normal visual inspection Resp Effort & Inspection: normal respiratory effort and able to speak in complete sentences Cardio Rate: regular rate GI Palpation: soft and not rigid Skin General skin exam: no rashes or lesions noted Neuro General: patient alert and patient oriented x3 Extrem General: normal to inspection Psych Mental Status: mental status grossly normal Course Vital Signs Vital signs: Vital Signs Temperature 36.4 C L 03/04/21 01:10 Pulse 76 03/04/21 01:10 Respiratory Rate 14 03/04/21 01:10 Blood Pressure 142/81 H 03/04/21 01:10 Pulse Oximetry 96 03/04/21 01:10 Temperature 36.4 C L 03/04/21 01:10 Pulse 76 03/04/21 01:10 Respiratory Rate 17 03/04/21 01:15 Respiratory Effort Non-Labored 03/04/21 01:15 Respiratory Depth Normal 03/04/21 01:15 Respiratory Pattern Normal 03/04/21 01:15 Blood Pressure 142/81 H 03/04/21 01:10 Blood Pressure Position Supine 03/04/21 01:10 Pulse Oximetry 96 03/04/21 01:10 Oxygen Delivery Method Room Air 03/04/21 01:10 Oxygen Flow Rate 0 03/04/21 01:10 Pain Level 1 03/04/21 01:10
[2021-03-04 01:35] LABS: Abs Immature Grans 0.05 10^3/uL (0.0-0.06); Absolute Basophil Count 0.16 10^3/uL (0.0-0.2); Absolute Eosinophil Count 0.53 10^3/uL (0.0-0.7); Absolute Lymphocyte Count 1.85 10^3/uL (1.2-3.4); Absolute Neutrophil Count 4.29 10^3/uL (1.2-6.7); Basophils % 2.1; Eosinophils % 6.9; HCT 42.8 % (40.0-50.0); HGB 14.4 g/dL (13.5-17.5); Immature Grans % 0.7; Lymphocytes % 24.1; MCH 29.1 pg (27.0-33.0); MCHC 33.6 % (32.0-36.0); MCV 86.5 fL (80-95); MPV 8.9 fL (8.0-11.0); Monocytes % 10.4; Neutrophils % 55.8; Nucleated RBC 0 %; Platelet Count 227 10^3/uL (130-400); RBC 4.95 10^6/uL (4.36-5.78); RDW 11.9 % (11.8-14.1); WBC 7.68 10^3/uL (4.4-10.8)
[2021-03-04] MEDS: Omnipaque 350 MG/ML 100 ML BTL IJ (01:35)
[2021-03-04 01:36] LABS: BE (Venous) 3 mmol/L (-2-3); HCO3 (Venous) 27 mmol/L (23-28); O2 Sat (Venous) 93 %; TCO2 (Venous) 24 mmol/L (24-29); pCO2 (Venous) 41 mmHg (41-51); pH (Venous) 7.43 (7.31-7.41); pO2 (Venous) 62 mmHg
[2021-03-04] MEDS: LORazepam 2 MG/ML VIAL 1 MG IVP (01:36)
[2021-03-04 01:53] LABS: Lipase 96 U/L (73-393)
[2021-03-04 01:56] LABS: ALT 37 U/L (16-63); AST 25 U/L (15-37); Albumin 3.6 g/dL (3.4-5.0); Alkaline Phosphatase 49 U/L (46-116); BUN 17 mg/dL (7-18); Bilirubin, Total 0.3 mg/dL (0.2-1.0); CREATININE 0.9 mg/dL (0.70-1.30); Calcium 9.6 mg/dL (8.5-10.1); Chloride 107 mmol/L (98-107); Glucose 106 mg/dL (74-106); Potassium 3.9 mmol/L (3.5-5.1); Sodium 143 mmol/L (136-145); Total Protein 6.7 g/dL (6.4-8.2); Troponin I < 0.05 ng/mL (<0.06)
[2021-03-04] MEDS: Normal Saline Flush 10 ML SYR IVP (02:02)
[2021-03-04] MEDS: Normal Saline - Diluent 50 ML VIAL IV (02:02)
[2021-03-04 02:06] LABS: Magnesium 2.1 mg/dL (1.8-2.4); TSH (W/Ref FT4) 6.05 uIU/mL (0.36-3.74)
--- NOTE | 2021-03-04 02:18 | DI.VRAD_ITS ---
PROCEDURE INFORMATION: Exam: CTA Chest With Contrast Exam date and time: 03/04/2021 1:25 AM Age: 65 years old Clinical indication: Generalized; Other: Discomfort; Prior surgery; Surgery date: 6+ months; Surgery type: Hernia repair; Patient HX: Chest pain, dyspnea, abdominal pain; Additional info: HX of testicular CA, diverticulosis, multiple rib fxs TECHNIQUE: Imaging protocol: Computed tomographic angiography of the chest with contrast. 3D rendering (Not supervised by radiologist): MIP and/or 3D reconstructed images were created by the technologist. Radiation optimization: All CT scans at this facility use at least one of these dose optimization techniques: automated exposure control; mA and/or kV adjustment per patient size (includes targeted exams where dose is matched to clinical indication); or iterative reconstruction. Contrast material: OMNIPAQUE 350; Contrast volume: 100 ml; Contrast route: INTRAVENOUS (IV); COMPARISON: CT CHEST/ABD/PEL W 10/23/2020 5:13 PM FINDINGS: Pulmonary arteries: Normal. No pulmonary emboli. Aorta: Unremarkable. No aortic aneurysm. No aortic dissection. Lungs: Unremarkable. No consolidation. No masses. Pleural spaces: Unremarkable. No pneumothorax. No pleural effusion. Heart: Unremarkable. No cardiomegaly. No pericardial effusion. Lymph nodes: Unremarkable. No enlarged lymph nodes. Bones/joints: Old right posterior rib fracture deformities Soft tissues: Unremarkable. IMPRESSION: No acute findings PROCEDURE INFORMATION: Exam: CT Abdomen And Pelvis With Contrast Exam date and time: 03/04/2021 1:25 AM Age: 65 years old Clinical indication: Generalized; Other: Discomfort; Prior surgery; Surgery date: 6+ months; Surgery type: Hernia repair; Patient HX: Chest pain, dyspnea, abdominal pain; Additional info: HX of testicular CA, diverticulosis, multiple rib fxs TECHNIQUE: Imaging protocol: Computed tomography of the abdomen and pelvis with contrast. Radiation optimization: All CT scans at this facility use at least one of these dose optimization techniques: automated exposure control; mA and/or kV adjustment per patient size (includes targeted exams where dose is matched to clinical indication); or iterative reconstruction. Contrast material: OMNIPAQUE 350; Contrast volume: 100 ml; Contrast route: INTRAVENOUS (IV); COMPARISON: CT CHEST/ABD/PEL W 10/23/2020 5:13 PM FINDINGS: Aorta: No aortic aneurysm. No aortic dissection. Celiac trunk and mesenteric arteries: No occlusion or significant stenosis. Renal arteries: No occlusion or significant stenosis. Liver: Left lobe hepatic hemangioma measures 3.3 cm Gallbladder and bile ducts: Cholelithiasis is present without evidence for gallbladder wall thickening. Pancreas: Normal. No ductal dilation. Spleen: Normal. No splenomegaly. Adrenals: Normal. No mass. Kidneys and ureters: Multiple bilateral simple renal cysts measure up to 14 mm on the right Stomach and bowel: Unremarkable. No obstruction. No mucosal thickening. Lymph nodes: Unremarkable. No enlarged lymph nodes. Intraperitoneal space: Unremarkable. No free air. No significant fluid collection. Reproductive: Heterogeneous and nodular prostate gland is enlarged at 6.3 by 6 cm. Bladder: Multiple urinary bladder diverticuli are present. A trace pericystic stranding may reflect associated mild cystitis. Bones/joints: Unremarkable. No acute fracture. No dislocation. Soft tissues: Unremarkable. IMPRESSION: 1. Multiple urinary bladder diverticuli are present. A trace pericystic stranding may reflect associated mild cystitis. 2. Heterogeneous and nodular prostate gland is enlarged at 6.3 by 6 cm. Dictated and Authenticated by: Marty Roberts MD. Ordering:MAGDI Howell MD
[2021-03-04 02:22] LABS: FREE T4 0.95 ng/dL (0.76-1.46)
[2021-03-04 03:10] LABS: Bilirubin Negative (Negative); Blood Negative (Negative); Clarity Clear (Clear); Glucose Negative (Negative); Ketones Negative (Negative); Leukocyte Esterase Negative (Negative); Nitrite Negative (Negative); Specific Gravity <= 1.005 (1.005-1.025); Urobilinogen 0.2 EU/dL (Up TO 0.2)
--- NOTE | 2021-03-04 04:15 | RT.EKG_ITS ---
APPROVED REPORT Exam: Resting ECG Reason for Exam: dizziness Patient Location: E HR:60 bpm ECG Measurements Heart Rate 60 AXIS VA 160 P 26 QRSd 100 QRS -9 QT 433 T 6 QTc 433 Conclusion Sinus rhythm...normal P axis, V-rate 60- 99
[2021-03-04 05:12] LABS: Troponin I < 0.05 ng/mL (<0.06)
== END 2021-03-04 05:32 | disposition home or self-care (01) ==
PROVIDERS: Emergency Provider Emergency Medicine; PCP Internal Medicine
DX: R00.2 Palpitations (principal); R07.9 Chest pain, unspecified; R06.00 Dyspnea, unspecified; R10.9 Unspecified abdominal pain
CPT/HCPCS: 71275; 74177; 80053; 82805; 83690; 93005; 96374; 99285; 81003; 83735; 84439; 84443; 84484; 85025; 93010; 99284; J2060; J3490

== ENCOUNTER 2021-03-11 09:26 | Outpatient (REF) | payer MEDICAID, SELFPAY | END 2021-03-11 09:27 | disposition home or self-care (01) | LOC: NCHCN 09:26 | PROVIDERS: PCP Internal Medicine; Visit Provider Internal Medicine | DX: Z12.5 Encounter for screening for malignant neoplasm of prostate (principal); C62.12 Malignant neoplasm of descended left testis | CPT/HCPCS: 84153 ==

== ENCOUNTER 2021-10-26 09:22 | Outpatient (REF) | payer MEDICARE, MEDICAID, SELFPAY ==
[2021-10-27 09:06] LABS: TSH 4.13 uIU/mL (0.36-3.74)
[2021-10-27 19:00] LABS: PSA, Screening 4.2 ng/mL (0.0-4.5)
== END 2021-10-26 09:23 | disposition home or self-care (01) ==
LOC: NCHCN 09:22
PROVIDERS: PCP Internal Medicine; Visit Provider Internal Medicine
DX: F41.9 Anxiety disorder, unspecified (principal); E66.9 Obesity, unspecified; C62.90 Malignant neoplasm of unspecified testis, unspecified whether descended or undescended; Z12.5 Encounter for screening for malignant neoplasm of prostate
CPT/HCPCS: 84153; 84439; 84443

== ENCOUNTER 2022-04-29 18:04 | Outpatient (REF) | payer MEDICARE, MEDICAID, SELFPAY ==
[2022-04-29 16:02] LABS: Hemoglobin A1C 5.9 % (<5.7)
[2022-04-29 22:31] LABS: PSA, Screening 3.8 ng/mL (<=4.5)
== END 2022-04-29 18:05 | disposition home or self-care (01) ==
LOC: NCHCN 18:04
PROVIDERS: PCP Internal Medicine; Visit Provider Internal Medicine
DX: Z00.00 Encounter for general adult medical examination without abnormal findings (principal); N40.0 Benign prostatic hyperplasia without lower urinary tract symptoms; E66.9 Obesity, unspecified; D18.00 Hemangioma unspecified site; E78.5 Hyperlipidemia, unspecified; M25.512 Pain in left shoulder; M25.511 Pain in right shoulder
CPT/HCPCS: 84153; 83036

== ENCOUNTER 2022-11-26 13:34 | Emergency (ER) | payer MEDICARE, OTHER, SELFPAY ==
[2022-11-26 13:37] VITALS: BP 163/106; PULSE 112; RESP 16; TEMP 36.5; O2SAT 96
--- NOTE | 2022-11-26 13:49 | ED.GENADUL_ITS ---
Discharge Plan Disposition Patient Disposition: Home Discharge Details Chief Complaint: EarProblem Clinical Impression: Foreign body in ear Primary Care Provider: Emeterio Hopkins ED Provider: Chandler Churchill Home Meds and New Rx's Prescriptions: No Action simvastatin [Zocor] 20 MG tablet 40 mg PO DAILY aspirin [Aspirin Low-Strength] 81 MG tablet,chewable 81 mg PO DAILY tamsulosin 0.4 MG capsule 0.4 mg PO DAILY Qty: 30 docusate sodium [Colace] 100 mg capsule 100 mg PO DAILY PRN Probiotic 1 EACH capsule 1 ea PO BID Discharge Instructions Additional Instructions: Please continue taking all your regular medication. Medical Decision Making The left foreign body was removed with forceps by nursing at triage under my supervision. HPI General Date/Time Provider Initiated Documentation: 11/26/22 13:49 . HPI Narrative: 67-year-old gentleman presented to the emergency department with an ear plug stuck in his left tympanic canal. No pain. No tinnitus no dizziness Related Data Home Medications Medication Instructions Recorded Confirmed aspirin 81 mg chewable tablet 81 mg PO DAILY 01/26/13 11/26/22 (Aspirin Low-Strength) simvastatin 20 mg tablet (Zocor) 40 mg PO DAILY 01/26/13 11/26/22 tamsulosin 0.4 mg capsule 0.4 mg PO DAILY #30 tab-caps 01/17/14 11/26/22 Lactobacillus acidophilus 10 1 ea PO BID 07/05/16 11/26/22 billion cell capsule (Probiotic) docusate sodium 100 mg capsule 100 mg PO DAILY PRN 11/10/22 11/26/22 (Colace) Allergies Allergy/AdvReac Type Severity Reaction Status Date / Time No Known Allergies Allergy Unverified 11/26/22 13:41 General Stated Complaint: EarProblem CLINT: 4 Review of Systems Narrative: Negative review of systems x4 PFSH All Active Problems (Updated 11/26/22 @ 13:57 by Chandler Churchill MD) Chest pain (Acute) Dyspnea (Acute) Abdominal pain (Acute) Palpitations (Acute) Foreign body in ear (Acute) Multiple fractures of ribs (Acute) Dislocated thumb (Acute 10/23/20) L at MCP joint Knee pain (Acute) Colorectal polyps (Acute) Diverticulosis (Acute) Medical History Adenomatous colon polyp BPH (benign prostatic hyperplasia) Cannabis abuse, daily use Colorectal polyps Degenerative joint disease (DJD) of lumbar spine Diverticulosis Dyspepsia Hyperlipidemia Left shoulder pain Lower back pain Obesity Seminoma of left testis, stage 1 Varicose vein of leg Surgical History Colonoscopy - IV Sedation (~08/13/19) 08/05/2014 Cystoscopy History of left inguinal hernia repair Orchiectomy, Radical right Social History Smoking/Tobacco Use Status: Never Smoking risk assessment performed?: Yes Alcohol Intake: never Drug use: Current Sobriety Substance use type: marijuana Do you feel safe at home: Yes Do you feel safe in your relationship?: Yes Exam Narrative Exam Narrative: General: A,A Ox3, Calm, no apparent distress, well developed, pleasant and cooperative Head Size/Shape: normocephalic, atraumatic Eyes Pupils: PERRLA Extraocular Mobility: intact and symmetrical Conjunctiva: non-injected, anicteric, no discharge Ears, Nose, Throat -left tympanic canal with black piece of plastic. Oral Cavity: moist Respiratory Effort: no dyspnea Musculoskeletal System Joints, Bones, and Muscles: no deformities Extremities: warm and well-perfused, no cyanosis, capillary refill <2 seconds Neurological Motor: normal tone, normal strength, moving all extremities equally Psychiatric: good insight, good judgement, normal mood and affect Course Vital Signs Vital signs: Vital Signs Temperature 36.5 C 11/26/22 13:37 Pulse 112 H 11/26/22 13:37 Respiratory Rate 16 11/26/22 13:37 Blood Pressure 163/106 H 11/26/22 13:37 Pulse Oximetry 96 11/26/22 13:37 Temperature 36.5 C 11/26/22 13:37 Temperature Source Skin 11/26/22 13:37 Pulse 112 H 11/26/22 13:37 Respiratory Rate 16 11/26/22 13:37 Respiratory Effort Normal 11/26/22 13:42 Blood Pressure 163/106 H 11/26/22 13:37 Blood Pressure Position Sitting 11/26/22 13:37 Pulse Oximetry 96 11/26/22 13:37 Oxygen Delivery Method Room Air 11/26/22 13:37 Oxygen Flow Rate 0 11/26/22 13:37 Pain Level 2 11/26/22 13:43
== END 2022-11-26 13:54 | disposition home or self-care (01) ==
PROVIDERS: Emergency Provider Emergency Medicine; PCP Internal Medicine
DX: T16.2XXA Foreign body in left ear, initial encounter (principal)
CPT/HCPCS: 99281; 99282

== ENCOUNTER 2023-04-25 13:14 | Outpatient (REF) | payer MEDICARE, OTHER, SELFPAY ==
[2023-04-25 16:39] LABS: Calculated LDL 88 mg/dL (<100); Cholesterol 179 mg/dL (<200); HDL Cholesterol 46 mg/dL (40-60); TSH (W/Ref FT4) 2.61 uIU/mL (0.36-3.74); Triglyceride 225 mg/dL (<150)
[2023-04-26 18:23] LABS: PSA, Screening 3.8 ng/mL (<=4.5)
== END 2023-04-25 13:15 | disposition home or self-care (01) ==
LOC: NCHCN 13:14
PROVIDERS: PCP Internal Medicine; Visit Provider Internal Medicine
DX: E78.5 Hyperlipidemia, unspecified (principal); E66.9 Obesity, unspecified; N40.0 Benign prostatic hyperplasia without lower urinary tract symptoms; F41.8 Other specified anxiety disorders; Z12.5 Encounter for screening for malignant neoplasm of prostate
CPT/HCPCS: 80061; 84153; 84443

== ENCOUNTER → 2023-07-07 13:52 | Outpatient (CLI) | payer MEDICARE, SELFPAY ==
--- NOTE | 2023-07-07 | DI.RAD_ITS ---
Exam(s) XR SHOULDER LT COMPLETE 2+V EXAM: XR SHOULDER LT COMPLETE 2+V CLINICAL HISTORY: M25.512 Pain in left shoulder. TECHNIQUE: 2D digital imaging was performed. Three views. COMPARISON: CR RIGHT SHOULDER COMPLETE from 05/15/2013 FINDINGS: BONES: No acute fracture is present. No bony destructive lesion is seen. Spurring at the lesser tuberosity. JOINTS: No dislocation present. Mild spurring at AC joint. Spurring at the acromion. Glenohumeral joint space is maintained. Mild to moderate spurring. SOFT TISSUE: Normal. IMPRESSION: [id number] degenerative change. DATA REPOSITORY: RADIATION DOSE DELIVERED:
== END ==
PROVIDERS: PCP Internal Medicine; Visit Provider Internal Medicine
DX: M25.512 Pain in left shoulder (principal)
CPT/HCPCS: 73030

== ENCOUNTER 2023-07-14 13:00 | Day surgery (SDC) | payer MEDICARE, SELFPAY ==
--- NOTE | 2023-07-13 21:14 | W.PM.DSUDISC ---
Date of service: 07/14/23 Discharge Plan Disposition Patient Disposition: Home Condition: Good Discharge Details Reason For Visit: screening colonoscopy Attending Provider: Shekhar Marie Primary Care Provider: Emeterio Hopkins Home Meds and New Rx's Prescriptions: Continued simvastatin [Zocor] 20 MG tablet 40 mg PO DAILY tamsulosin 0.4 MG capsule 0.4 mg PO DAILY Qty: 30 docusate sodium [Colace] 100 mg capsule 100 mg PO DAILY PRN ascorbate calcium (vitamin C) 500 mg tablet 500 mg PO DAILY cholecalciferol (vitamin D3) 50 mcg (2,000 unit) capsule 50 mcg PO DAILY Probiotic 1 EACH capsule 1 ea PO BID Discontinued bisacodyl [Dulcolax (bisacodyl)] 5 mg tablet,delayed release (DR/EC) 5 mg PO ONCE Qty: 4 0RF Rx Instructions: Take per colonoscopy instructions provided by ordering providers office polyethylene glycol 3350 17 gram/dose powder 17 g PO ONCE Qty: 238 0RF Rx Instructions: Take per colonoscopy instructions provided by ordering providers office Discharge Instructions Additional Instructions: 1. If tolerated, consume a soft, low fiber diet for 1-2 days. [address] not drive, drink alcohol, operate machinery, make critical decisions, or do activities that require coordination or balance for 24 hours. 3. Because air was put into your colon during the procedure, expelling air from your rectum (passing gas or farting) is normal. 4. You may not have a bowel movement for 1-3 days because of the colonoscopy prep. This is normal. 5. Go directly to the emergency room if you notice any of the following: Develop chills (warm to touch), or if you have a thermometer and your temperature is above 101 Difficulty breathing or difficultly swallowing Persistent vomiting Severe abdominal pain, other than gas cramps Severe chest pain Black, tarry stools Any bleeding ? exceeding one tablespoon 6. Call your physician if the site where your intravenous was started becomes red, swollen, painful, and warm to touch. 7. Your physician has reviewed your pre-procedure medications. Please continue to take those medications as previously ordered. You will be given specific information/education regarding any changes to your medications before leaving. Activity:: Activity as Tolerated Remove Dressings/Wound Care:: Do Not Remove Diet:: As Tolerated DS: Diagnosis Discharge Diagnosis (1) Screen for colon cancer: Status: Acute
--- NOTE | 2023-07-13 21:16 | W.COLOREPORT ---
Date of service: 07/14/23 Colonoscopy Report Date of procedure: 07/14/23 Pre-op diagnosis general: screening colonoscopy Procedure: Colonoscopy Surgeon: Shekhar Marie Anesthesia Type: General:No Airway Complications: None Disposition: same day Indications: Juan is a 67 year old man with a history of adenomatous polyps who needs his next screening colonoscopy Prep: Miralax/Dulcolax
[2023-07-14 13:22] VITALS: BP 118/76; PULSE 72; RESP 15; TEMP 36.2; O2SAT 96
[2023-07-14] MEDS: Lactated Ringers 1,000 ML 80 ML IV (13:35)
--- NOTE | 2023-07-14 13:58 | W.ANESPRE ---
General Info Date of Service Date Performed: 07/14/23 Height: 5 ft 10 in Weight: 107.1 kg Body Mass Index (BMI): 33.8 Surgical Procedure: Operation Date: 07/14/23 13:50 Proposed Procedure Side Surgeon sofia Marie MD Meds Allergies and Home Medications Allergies Allergy/AdvReac Type Severity Reaction Status Date / Time No Known Allergies Allergy Unverified 07/12/23 15:04 Home Medication Medication Instructions Recorded simvastatin 20 mg tablet (Zocor) 40 mg PO DAILY 01/26/13 tamsulosin 0.4 mg capsule 0.4 mg PO DAILY #30 tab-caps 01/17/14 Lactobacillus acidophilus 10 1 ea PO BID 07/05/16 billion cell capsule (Probiotic) docusate sodium 100 mg capsule 100 mg PO DAILY PRN 11/10/22 (Colace) ascorbate calcium (vitamin C) 500 500 mg PO DAILY 07/05/23 mg tablet cholecalciferol (vitamin D3) 50 50 mcg PO DAILY 07/05/23 mcg (2,000 unit) capsule Current Visit Medications: Current Medications Generic Name Dose Route Start Last Admin Trade Name Freq PRN Reason Stop Dose Admin Hyoscyamine Sulfate 0.125 mg 07/13/23 21:17 Hyoscyamine 0.125 Mg Sl/Oral/Chew SL 08/12/23 21:16 DIRECTED PRN Ringer's Solution 1,000 mls @ 80 mls/hr 07/14/23 06:00 07/14/23 13:35 IV 08/12/23 23:59 80 mls/hr INFUSION SARAH Administration IV Miscellaneous Supplies 1 each 07/14/23 06:00 Iv Access IV 08/12/23 23:59 DIRECTED SARAH Ondansetron HCl 4 mg 07/13/23 21:17 Ondansetron 4 Mg/2 Ml Vial IVP 08/12/23 21:16 Q4H PRN PRN Nausea / Vomiting Sodium Chloride 0 ml 07/14/23 06:00 Normal Saline Flush 10 Ml Syr IV 08/12/23 23:59 PRN PRN Sodium Chloride 0 ml 07/14/23 06:00 Normal Saline 10 Ml Vial IJ 08/12/23 23:59 DIRECTED PRN Sterile Water 0 ml 07/14/23 06:00 Water,Injection,Sterile 10 Ml Vial IJ 08/12/23 23:59 DIRECTED PRN PFSH Active Problems Active Problems: Problem Status Onset Code Screen for colon cancer Z12.11 Palpitations R00.2 Abdominal pain R10.9 Dyspnea R06.00 Chest pain R07.9 Multiple fractures of ribs S22.49XA Dislocated thumb 10/23/20 S63.106A Knee pain M25.569 Colorectal polyps K63.5 Diverticulosis K57.90 Medical History Medical History Adenomatous colon polyp BPH (benign prostatic hyperplasia) Cannabis abuse, daily use Colorectal polyps Degenerative joint disease (DJD) of lumbar spine Diverticulosis Dyspepsia Hyperlipidemia Left shoulder pain Lower back pain Obesity Seminoma of left testis, stage 1 Varicose vein of leg Medical History Comments:: pt. denies any hx of chest pain and pressure Surgical History Surgical History Colonoscopy - IV Sedation (~08/13/19) 08/05/2014 Cystoscopy History of left inguinal hernia repair Orchiectomy, Radical right Tobacco Smoking/Tobacco Use Status: Never Alcohol Alcohol Intake: never Substance Use Substance use: Current Sobriety Substance use type: marijuana Details: no current marijuana use, 07/14/23 Vital Signs and Lab Results Vital Signs Most Recent Vital Signs in EMR: Most Recent Vital Signs Temp Pulse Resp BP Pulse Ox 36.2 C L 72 15 118/76 96 07/14/23 13:22 07/14/23 13:22 07/14/23 13:22 07/14/23 13:22 07/14/23 13:22 Lab Results Blood Type / Crossmatch: No Data to Display Complete Blood Count: No Data to Display Complete Metabolic Panel: No Data to Display Liver Function Panel: No Data to Display Coagulation Panel: No Data to Display Cardiac Panel: No Data to Display Arterial Blood Gas: No Data to Display Venous Blood Gas: No Data to Display Pancreas Panel: No Data to Display Thyroid Panel: No Data to Display Infectious Disease: No Data to Display Blood Cultures: No Data to Display Toxicology Panel: No Data to Display Anesthesia Assessment and Plan Anesthesia History Personal History: No History of Anesthesia Complications Family History: No Family History of Anesthesia Complications Exercise Tolerance Exercise Tolerance: Metabolic Equivalents>4 Pertinent Negatives Pertinent Negatives: No Symptoms of GERD, No Major Cardiovascular Symptoms or Complaints and No Major Pulmonary Symptoms or Complaints Cardiac & Pulmonary Exam Cardiac Exam: Normal S1/S2 Heart Sounds Pulmonary Exam: Clear Bilateral Breath Sounds Implantable Cardiac Device Does patient have a Pacemaker or an ICD?: No Airway Exam Known Difficult Airway: No Mallampati Class: 2 Mouth Opening: Normal (> 3cm) Thyromental Distance: Greater than 3 cm Facial Hair: Full Brasher Neck Range of Motion: Full ROM Neck Circumference: Normal Teeth Condition: Normal Dentition ASA Classification ASA Score: ASA 2 Emergency Case?: No NPO Status NPO Status: NPO Clears >2 hours, Solids >8 hours Anesthesia Plan Resuscitation Status: Full Code Anesthesia Technique: General Anesthesia Airway Planned: Natural Airway Monitors Used: Standard Monitors
[2023-07-14 14:00] VITALS: BMI 33.8
--- NOTE | 2023-07-14 16:51 | SUR.PREOP ---
Patient procedure postponed to tomorrow due to an emergency surgery add-on
== END 2023-07-14 13:01 | disposition home or self-care (01) ==
LOC: SUR 13:01
PROVIDERS: PCP Internal Medicine; Visit Provider Surgery
DX: Z12.11 Encounter for screening for malignant neoplasm of colon (principal); Z86.010 Personal history of colon polyps; K63.5 Polyp of colon; K57.30 Diverticulosis of large intestine without perforation or abscess without bleeding; Z53.09 Procedure and treatment not carried out because of other contraindication

== ENCOUNTER 2023-07-15 06:53 | Day surgery (SDC) | payer MEDICARE, SELFPAY ==
--- NOTE | 2023-07-14 21:28 | W.PM.DSUDISC ---
Date of service: 07/15/23 Time of Service: 08:47 Discharge Plan Disposition Patient Disposition: Home Condition: Good Discharge Details Reason For Visit: Screening colonoscopy Attending Provider: Shekhar Marie Primary Care Provider: Emeterio Hopkins Home Meds and New Rx's Prescriptions: Continued simvastatin [Zocor] 20 MG tablet 40 mg PO DAILY tamsulosin 0.4 MG capsule 0.4 mg PO DAILY Qty: 30 docusate sodium [Colace] 100 mg capsule 100 mg PO DAILY PRN ascorbate calcium (vitamin C) 500 mg tablet 500 mg PO DAILY cholecalciferol (vitamin D3) 50 mcg (2,000 unit) capsule 50 mcg PO DAILY Probiotic 1 EACH capsule 1 ea PO BID Discharge Instructions Instructions: Diverticulosis (GEN), Colorectal Polyps (GEN), Diverticulosis Diet (GEN) Additional Instructions: Juan, we were able to complete your colonoscopy today without any problems at all. I did find a total of 3 polyps. These were medium size. I removed these all completely without any issues. Similar to your previous experience, I will send this off to be analyzed by the pathologist, and that will help us time your next colonoscopy appropriately. Incidentally, I also saw some diverticulosis. Diverticula are weak spots that occur in the colon wall as we get older. They can become infected and inflamed, and that is typically experienced chest pain on the left side of the abdomen. This is usually accompanied by fevers and feeling pretty ill. During those times, patient should be treated with antibiotics. Hopefully, these polyps never bother you. I did attach some general information here regarding colon polyps, as well as diverticulosis. Please feel free to call at any time if you have any questions. Otherwise, I will be in touch when I have the results of the polyp report. 1. If tolerated, consume a soft, low fiber diet for 1-2 days. 2[address] Do not drive, drink alcohol, operate machinery, make critical decisions, or do activities that require coordination or balance for 24 hours. 3. Because air was put into your colon during the procedure, expelling air from your rectum (passing gas or farting) is normal. 4. You may not have a bowel movement for 1-3 days because of the colonoscopy prep. This is normal. 5. Go directly to the emergency room if you notice any of the following: Develop chills (warm to touch), or if you have a thermometer and your temperature is above 101 Difficulty breathing or difficultly swallowing Persistent vomiting Severe abdominal pain, other than gas cramps Severe chest pain Black, tarry stools Any bleeding ? exceeding one tablespoon 6. Call your physician if the site where your intravenous was started becomes red, swollen, painful, and warm to touch. 7. Your physician has reviewed your pre-procedure medications. Please continue to take those medications as previously ordered. You will be given specific information/education regarding any changes to your medications before leaving. Activity:: Activity as Tolerated Diet:: As Tolerated Discharge Orders Discharge Orders: Discharge Order (Routine); Ordered 07/14/23 Ordered By: Shekhar Marie DS: Diagnosis Discharge Diagnosis (1) Screen for colon cancer: Status: Acute Asessment and Plan: Follow-up on polypectomy results
--- NOTE | 2023-07-14 21:29 | COLE_ITS ---
Date of service: 07/15/23 Time of Service: 08:49 Colonoscopy Report Date of procedure: 07/15/23 Pre-op diagnosis general: screening colonoscopy Post-op diagnosis procedure note: other (Diverticulosis, colon polyps) Procedure: Colonoscopy with polypectomy Surgeon: Shekhar Marie Anesthesia Type: General:No Airway Estimated blood loss (mL): 10 Pathology: other (0.5 cm polyps at 85 cm from the anus x 2, 0.25 cm polyp at 70 cm) Complications: None Disposition: same day Indications: Juan is a 67 year old man with a history of adenomatous polyps. He needs his next screening colonoscopy. Prep: Miralax/Dulcolax Procedure Start Time: 08:15 Procedure End Time: 08:40 Retraction Time: 16 Findings: 0.5 cm polyps at 85 cm from the anus x 2, 0.25 cm polyp at 70 cm Procedure Description: After the induction of monitored anesthetic care, and with the patient in left lateral decubitus position, I began by performing an external anorectal exam.? Perineum and skin were normal, as was the anal verge.? There was no evidence of external hemorrhoids.? Next, I performed a digital rectal exam.? I did not appreciate any abnormal findings.? Next, I advanced a colonoscope into the rectal vault.? I performed retroflexion.? This appeared normal.? Using insufflation, I then advanced the colonoscope beyond the rectal folds and into the sigmoid colon before advancing towards the cecum.? There was some sigmoid diverticulosis.? The scope was noted to be in the cecum by identification of the ileocecal valve and appendiceal orifice.? I then began withdrawing the colonoscope using repeated irrigation as necessary for full evaluation of the colonic mucosa. Around 85 cm from the anus were 2 polyps. These were just a few centimeters apart from 1 another. Both of these were rather flat appearing. Snare polypectomy. Each polyp was about 0.5 cm. I also found a 0.25 cm polyp at 70 cm from the anus. This was also flat, and I removed this with cold forceps. There was minimal bleeding from the site. I was able to removed both with once the scope was withdrawn to the level of the rectum, great care was taken to examine portions of the rectal folds.? Finally, the scope was withdrawn and the patient was brought to the same-day surgery recovery unit as the anesthetic wore off. ?The findings and instructions were shared with the patient prior to discharge. [place] Bowel Prep [place] Bowel Prep Right Colon: 2 Left Colon: 2 Transverse Colon: 2 Total Score: 6
[2023-07-15 07:04] VITALS: BP 113/79; PULSE 64; RESP 16; TEMP 36.6; O2SAT 96
[2023-07-15] MEDS: Lactated Ringers 1,000 ML 80 ML IV (07:12)
--- NOTE | 2023-07-15 08:28 | BOWEL_PTH ---
PATIENT: Juan Molina JR LOC: [facility] U#:[id number] AGE/SX: 67/M ROOM: RE07/15/[address]: Shekhar Marie MD : [id number] BED: DIS: 07/15/2023 SPEC #: [id number] RECD: 07/15/23 12:36 STATUS: KIRA REQ #: [id number] JOE: 07/15/23 08:[address]: Shekhar Marie DEPT: Surgical Specimen RECD BY: Brandy Ma ENTERED: 07/15/23 12:37 SP TYPE: Bowel OTHR DR: Emeterio Hopkins Tissues: 1 - BIOPSY BOWEL 2 - BIOPSY BOWEL Procedures: GROSS AND MICRO LEVEL 4 Comments: [id number]
[2023-07-15 08:45] VITALS: BP 95/66; PULSE 65; RESP 18; TEMP 36.6; O2SAT 93
--- NOTE | 2023-07-15 09:12 | W.ANESPOSTOP ---
Postoperative Evaluation Date, Time and Location Date Performed: 07/15/23 Time Performed: 09:12 Patient Location: Day Surgery Unit Vital Signs Most Recent Imported Vital Signs: Most Recent Vital Signs Temp Pulse Resp BP Pulse Ox 36.6 C 65 18 95/66 L 93 07/15/23 08:45 07/15/23 08:45 07/15/23 08:45 07/15/23 08:45 07/15/23 08:45 Pain Score Most Recent Pain Score: Most Recent Pain Score Pain Level 0 07/15/23 08:45 Assessment Mental Status: Awake (Alert & Oriented to Patient Baseline) Airway and Respiratory Function: Patent airway with normal (patient baseline) respiratory exam Cardiovascular Function: Hemodynamically Stable Hydration Status: Adequately Hydrated Nausea & Vomiting: No Nausea or Vomiting Pain: Pt. Denies Any Pain Peripheral Nerve Block: Patient did not receive a nerve block
[2023-07-15 09:16] VITALS: BP 106/77; PULSE 60; RESP 16; TEMP 36.6; O2SAT 96
== END 2023-07-15 06:54 | disposition home or self-care (01) ==
PROVIDERS: PCP Internal Medicine; Visit Provider Surgery
PROC: 0DJD8ZZ Inspection of Lower Intestinal Tract, Via Natural or Artificial Opening Endoscopic (ICD-10-PCS; CPT 45378; principal; 2023-07-15 08:15)
DX: Z12.11 Encounter for screening for malignant neoplasm of colon (principal); Z86.010 Personal history of colon polyps; D12.3 Benign neoplasm of transverse colon; K57.30 Diverticulosis of large intestine without perforation or abscess without bleeding; D12.4 Benign neoplasm of descending colon
CPT/HCPCS: 45385; 45380; 88305

== ENCOUNTER → 2023-07-20 14:04 | Outpatient (BNVA) | payer MEDICARE, SELFPAY | PROVIDERS: PCP Internal Medicine; Referring Provider Internal Medicine; Visit Provider Student in an Organized Health Care Education/Training Program | DX: M19.012 Primary osteoarthritis, left shoulder (principal) | CPT/HCPCS: 20610; J1030 ==

== ENCOUNTER 2023-11-30 15:35 | Outpatient (REF) | payer MEDICARE, SELFPAY ==
[2023-11-30 14:32] LABS: HCT 41.2 % (40.0-50.0); HGB 14.1 g/dL (13.5-17.5); MCH 29.7 pg (27.0-33.0); MCHC 34.2 % (32.0-36.0); MCV 87 fL (80-95); MPV 9.8 fL (8.0-11.0); Platelet Count 239 10^3/uL (130-400); RBC 4.74 10^6/uL (4.36-5.78); RDW 12.7 % (11.8-14.1); RDW-SD 40.1 fL; WBC 7.26 10^3/uL (4.4-10.8)
[2023-11-30 15:15] LABS: ALT 51 U/L (16-63); AST 32 U/L (15-37); Albumin 3.9 g/dL (3.4-5.0); Alkaline Phosphatase 47 U/L (46-116); Anion Gap 8.9 mmol/L (3-11); BUN 16 mg/dL (7-18); Bilirubin, Total 0.3 mg/dL (0.2-1.0); CO2 28.1 mmol/L (21.0-32.0); Calcium 9.3 mg/dL (8.5-10.1); Chloride 104 mmol/L (98-107); Estimated GFR 82.49 (mL/min/1.73m2); Glucose 98 mg/dL (74-106); LDL CHOLESTEROL 100 mg/dL (<100); Potassium 4.3 mmol/L (3.5-5.1); Sodium 141 mmol/L (136-145); Total Protein 6.6 g/dL (6.4-8.2)
== END 2023-11-30 15:36 | disposition home or self-care (01) ==
LOC: NCHCN 15:35
PROVIDERS: PCP Internal Medicine; Visit Provider Family Medicine
DX: E78.5 Hyperlipidemia, unspecified (principal)
CPT/HCPCS: 80053; 83721; 85027

== ENCOUNTER 2024-02-01 07:29 | Emergency (ER) | payer MEDICARE, SELFPAY ==
[2024-02-01 07:32] VITALS: BP 150/95; PULSE 68; RESP 18; TEMP 36.6; O2SAT 98
--- NOTE | 2024-02-01 07:54 | ED.GENADUL_ITS ---
Discharge Plan Disposition Patient Disposition: Home Condition: Good Discharge Details Clinical Impression: Hordeolum externum of right eye Primary Care Provider: Emeterio Hopkins ED Provider: Adal Scruggs Home Meds and New Rx's Prescriptions: New cephalexin 500 mg capsule 500 mg PO QID 5 Days Qty: 20 0RF No Action simvastatin [Zocor] 20 MG tablet 40 mg PO DAILY tamsulosin 0.4 MG capsule 0.4 mg PO DAILY Qty: 30 docusate sodium [Colace] 100 mg capsule 100 mg PO DAILY PRN ascorbate calcium (vitamin C) 500 mg tablet 500 mg PO DAILY cholecalciferol (vitamin D3) 50 mcg (2,000 unit) capsule 50 mcg PO DAILY Probiotic 1 EACH capsule 1 ea PO BID Discharge Instructions Instructions: Stye Additional Instructions: At this time you have evidence of a stye on your lower lid. Please use a warm washcloth/compress with [employer]ín [employer] Mart[employer] baby tear free shampoo to gently rub massage to the eye lid 3-4 times per day. Please take the antibiotic as directed. Is been sent to your [facility] pharmacy on file. If you notice any worsening of your symptoms, or any new symptoms such as vomiting, diarrhea, fever, chills, shortness of breath, chest pain, numbness, weakness, or fainting , please return immediately to the emergency department for reevaluation. Please follow up with your primary care provider as soon as possible for reassessment and reevaluation. As always, it was a pleasure participating in your medical care today. Referrals: Emeterio Hopkins MD [Primary Care Provider] - [facility] General Date/Time Provider Initiated Documentation: 02/01/24 07:46 . [facility] Narrative: This is a very pleasant 68-year-old male who presents today with complaint of irritation to the right lower eyelid. Patient states that 3 days ago on Tuesday he noticed a small amount of tenderness and irritation on the right lower eyelid over the medial aspect. He denies any trauma. He did try scratching and itching the area but this did not improve. This morning when he woke up there was some additional discharge in that area and his told him that he could not go out and ride his motorcycle unless he got checked out. He denies any other complaints at this time. No other modifying factors. He denies any eyeball pain. Itchiness on the eyeball. Persistent purulent discharge, or other complaint. Related Data Home Medications Medication Instructions Recorded Confirmed simvastatin 20 mg tablet (Zocor) 40 mg PO DAILY 01/26/13 02/01/24 tamsulosin 0.4 mg capsule 0.4 mg PO DAILY #30 tab-caps 01/17/14 02/01/24 Lactobacillus acidophilus 10 1 ea PO BID 07/05/16 02/01/24 billion cell capsule (Probiotic) docusate sodium 100 mg capsule 100 mg PO DAILY PRN 11/10/22 02/01/24 (Colace) ascorbate calcium (vitamin C) 500 500 mg PO DAILY 07/05/23 02/01/24 mg tablet cholecalciferol (vitamin D3) 50 50 mcg PO DAILY 07/05/23 02/01/24 mcg (2,000 unit) capsule cephalexin 500 mg capsule 500 mg PO QID 5 days #20 caps 02/01/24 Previous Rx's Medication Instructions Recorded cephalexin 500 mg capsule 500 mg PO QID 5 days #20 caps 02/01/24 Allergies Allergy/AdvReac Type Severity Reaction Status Date / Time No Known Allergies Allergy Unverified 02/01/24 07:34 General Stated Complaint: EyeProblem CLINT: 4 Review of Systems All systems reviewed & are unremarkable except as noted in HPI and below Exam Narrative Exam Narrative: 1.Const: Well-nourished, Well-developed, appearing stated age 2.Eyes:Right eye: EOMI, PERRL, Peripheral vision intact. No nystagmus. No proptosis. No hyphema, no signs of trauma around the eye, no periorbital emphysema. No sluggishness of the pupil. No ophthalmoplegia. No afferent pupillary defect. Visual acuity as documented in chart. Eversion of the upper and lower lid shows no evidence of retained foreign body. Patient's upper lid on the right is unremarkable, lower lid demonstrates what appears to be mild inflammation and minimal redness at the medial aspect by the lower punctum near the medial canthus. Gentle scraping with a Q-tip over the lower punctum was able to remove a thin film, and allow for mild drainage from that area. No tenderness over the pre or postseptal area otherwise. No significant orbital cellulitis. 3.ENT: Atraumatic external nose and ears. Moist MM. Neck: Symmetric, trachea midline, No thyromegaly. 4.CVS: +S1/S2, No murmurs or gallops. Peripheral pulses 2+ and equal in all extremities. Brisk capillary refill in all extremities. 5.RESP: Unlabored respiratory effort. Clear to auscultation bilaterally. No wheezes rales or rhonchi 6.GI: Soft, Nontender/Nondistended, No hepatosplenomegaly. No guarding or rebound. 7.MSK: Normocephalic/Atraumatic, Extremities w/o deformity or ttp No cyanosis or clubbing, Normal movement of all extremities 8.Skin: Warm, Dry. No rashes or lesions. 9.Neuro: a r collections rep II-XII grossly intact. Sensation grossly intact, no focal neurologic deficits. 10.Psych: (AAO) x3. Appropriate mood and affect Course Vital Signs Vital signs: Vital Signs Temperature 36.6 C 02/01/24 07:32 Pulse 68 02/01/24 07:32 Respiratory Rate 18 02/01/24 07:32 Blood Pressure 150/95 H 02/01/24 07:32 Pulse Oximetry 98 02/01/24 07:32 Temperature 36.6 C 02/01/24 07:32 Temperature Source Skin 02/01/24 07:32 Pulse 68 02/01/24 07:32 Respiratory Rate 18 02/01/24 07:32 Respiratory Effort Normal, Non-Labored 02/01/24 07:47 Blood Pressure 150/95 H 02/01/24 07:32 Blood Pressure Position Sitting 02/01/24 07:32 Pulse Oximetry 98 02/01/24 07:32 Oxygen Delivery Method Room Air 02/01/24 07:47 Oxygen Flow Rate 0 02/01/24 07:32 Pain Level 2 02/01/24 07:47 Medical Decision Making This is a very pleasant 68-year-old male who presents today with complaint of irritation to the right lower eyelid. Patient states that 3 days ago on Tuesday he noticed a small amount of tenderness and irritation on the right lower eyelid over the medial aspect. He denies any trauma. He did try scratching and itching the area but this did not improve. This morning when he woke up there was some additional discharge in that area and his told him that he could not go out and ride his motorcycle unless he got checked out. He denies any other complaints at this time. No other modifying factors. He denies any eyeball pain. Itchiness on the eyeball. Persistent purulent discharge, or other complaint. Patient's upper lid on the right is unremarkable, lower lid demonstrates what appears to be mild inflammation and minimal redness at the medial aspect by the lower punctum near the medial canthus. Gentle scraping with a Q-tip over the lower punctum was able to remove a thin film, and allow for mild drainage from that area. No tenderness over the pre or postseptal area otherwise. No significant orbital cellulitis. Symptoms consistent with a mild plugged duct causing mild inflammation and potential very mild infection. Recommend warm compresses gentle washing with Martín [employer] Martín tear free baby shampoo, we will start Keflex antibiotic for treatment with a short 5-day course. Patient will be discharged home with close follow-up. No evidence of foreign body, significant pre or postseptal cellulitis, sepsis, corneal abrasion or other concerning etiology. Patient will be discharged home. Discussed red flags for which to return. I have extensively reviewed the treatment plan and discharge instructions with the patient. I have addressed all patient concerns at this time. The patient was made aware of what symptoms to monitor for that would warrant a return to the emergency department. Discussed the plan with the patie nt, they demonstrate verbal understanding and agreement with our assessment and plan at this time. The documentation in this chart was dictated using [employer] dictation software. Please excuse any dictation errors. Quality:SDOH Health Related Social Needs: No Data to Display PFSH All Active Problems Hordeolum externum of right eye (Acute) Tubular adenoma of colon (Acute ~07/15/23) Arthritis of left glenohumeral joint (Acute) Palpitations (Acute) Abdominal pain (Acute) Dyspnea (Acute) Chest pain (Acute) Multiple fractures of ribs (Acute) Dislocated thumb (Acute 10/23/20) L at MCP joint Knee pain (Acute) Colorectal polyps (Acute) Diverticulosis (Acute) Medical History Screen for colon cancer Cannabis abuse, daily use Left shoulder pain Varicose vein of leg Lower back pain BPH (benign prostatic hyperplasia) Obesity Adenomatous colon polyp Degenerative joint disease (DJD) of lumbar spine Hyperlipidemia Dyspepsia Seminoma of left testis, stage 1 Surgical History History of colonoscopy (~07/2023) History of left inguinal hernia repair Orchiectomy, Radical right Cystoscopy Colonoscopy - IV Sedation (~08/13/19) 08/05/2014 Social History Smoking/Tobacco Use Status: Never Smoking risk assessment performed?: Yes Alcohol Intake: never Drug use: Current Sobriety Substance use type: marijuana Details: no current marijuana use, 07/14/23 Housing: house Do you feel safe at home: Yes Do you feel safe in your relationship?: Yes Additional Social history: unable to assess privately, 07/15/23[facility]
== END 2024-02-01 08:01 | disposition home or self-care (01) ==
LOC: ER 08:03
PROVIDERS: Emergency Provider Student in an Organized Health Care Education/Training Program; PCP Internal Medicine
DX: H00.012 Hordeolum externum right lower eyelid (principal)
CPT/HCPCS: 99283; 99284

== ENCOUNTER 2024-10-30 13:05 | Outpatient (REF) | payer MEDICARE, SELFPAY ==
[2024-10-30 16:52] LABS: ALT 40 U/L (16-63); AST 29 U/L (15-37); Albumin 3.7 g/dL (3.4-5.0); Alkaline Phosphatase 49 U/L (46-116); Anion Gap 8.7 mmol/L (3-11); BUN 15 mg/dL (7-18); Bilirubin, Total 0.4 mg/dL (0.2-1.0); CO2 26.3 mmol/L (21.0-32.0); CREATININE 0.9 mg/dL (0.70-1.30); Calcium 9.2 mg/dL (8.5-10.1); Calculated LDL 99 mg/dL (<100); Chloride 110 mmol/L (98-107); Cholesterol 182 mg/dL (<200); Estimated GFR 93.03 (mL/min/1.73m2); Glucose 96 mg/dL (74-106); HDL Cholesterol 46 mg/dL (>or=40); Potassium 4.5 mmol/L (3.5-5.1); Sodium 145 mmol/L (136-145); Total Protein 6.5 g/dL (6.4-8.2); Triglyceride 187 mg/dL (<150)
[2024-10-30 22:49] LABS: PSA, Screening 4.1 ng/mL (<=4.5)
== END 2024-10-30 13:06 | disposition home or self-care (01) ==
LOC: NCHCN 13:05
PROVIDERS: PCP Family Medicine; Visit Provider Family Medicine
DX: C62.90 Malignant neoplasm of unspecified testis, unspecified whether descended or undescended (principal); E78.5 Hyperlipidemia, unspecified
CPT/HCPCS: 80053; 80061; 84153